=== PATIENT | male | born 1990 | race African-American/Black ===

== ENCOUNTER 2023-03-30 18:54 | Emergency (ER) | payer OTHER, SELFPAY ==
--- NOTE | ~2023-03-30 | XR_ITS ---
EXAMINATION: XR chest 2V DATE: 03/30/2023 19:31 INDICATION: Chest pain. TECHNIQUE: Frontal and lateral views of the chest were obtained. COMPARISON: None. FINDINGS: The chest demonstrates clear lungs without pneumonia, pleural effusion, or pneumothorax. Th e heart size is normal. There is old healed fracture of left sixth rib. IMPRESSION: 1. No acute cardiopulmonary disease. Reviewed, dictated and finalized at location A.
[2023-03-30 19:08] VITALS: BP 164/84; PULSE 91; RESP 16; TEMP 37.2; O2SAT 100
--- NOTE | 2023-03-30 19:21 | ECG_ITS ---
Measurements Intervals [place] Rate: 80 P: 39 NM: 159 QRS: 22 QRSD: 102 T: -23 QT: 363 QTc: 421 Interpretive Statements SINUS RHYTHM INCOMPLETE RIGHT BUNDLE BRANCH BLOCK NONSPECIFIC T-WAVE ABNORMALITY- ANTEROLAT/INF LEADS BORDERLINE ECG NO PREVIOUS ECG AVAILABLE FOR COMPARISON Electronically Signed On 03-31-2023 8:06:42 CDT by Gabo Brooks D.O.
--- NOTE | 2023-03-30 19:46 | ED.GENADULT ---
HPI - General Adult General Chief complaint: Chest Pain Stated complaint: bp high/chest hurting Source: patient Mode of arrival: ambulatory Limitations: no limitations History of Present Illness HPI narrative: Patient presents for evaluation of elevated blood pressure. He indicates he establish care with a new primary provider for his employer last Friday. At that time his blood pressure was elevated in the office. They recommended that he return a week from then to have his blood pressure repeated and to have comprehensive labs performed. He states he was told that they would consider starting him on BP medication at that time. He has a family history of hypertension on both his maternal and paternal side. States stress level at home is manageable. No underlying medical problems. He does not smoke or use illicit drugs. He drinks socially. He states he has experienced intermittent chest pain over the past few months. Pain occurs once per week, is right sided, sharp, rated 4/10 in severity and lasts about 20 mins in duration. He cannot identify any aggravating or alleviating factors. He does exercise regularly but has not experienced any recent injury. He does not use creating containing products. He experience some right-sided chest pain around 1330 today which lasted approximately 20 minutes. Pain resolved. His girlfriend advised he come in for further evaluation. He checked his blood pressure at home with reading of 180s over 90s. He has been chest pain free since approximately 1350. Current time is 1945. He did have some SOB earlier, which has since resolved. Related Data Home Medications Medication Instructions Recorded Confirmed No Home Medications 03/30/23 03/30/23 Allergies Allergy/AdvReac Type Severity Reaction Status Date / Time No Known Allergies Allergy Verified 03/30/23 19:07 Review of Systems Review of Systems: CONSTITUTIONAL: Denies fever, chills, or sweats. EYES: Denies visual changes, redness, or discharge. ENT: Denies rhinorrhea, congestion, sore throat, or otalgia. CARDIOVASCULAR: Reports chest pain earlier, now resolved. Denies, palpitations, or edema. RESPIRATORY: Reports shortness of breath earlier, now resolved. Denies cough GASTROINTESTINAL: Denies abdominal pain, nausea, vomiting, or diarrhea. GENITOURINARY: Denies dysuria or hematuria. SKIN: Denies rash or itching. MUSCULOSKELETAL: Denies back pain, joint pain, or myalgia. NEUROLOGIC: Denies headache, numbness, dizziness, or weakness. PSYCHIATRIC: Denies anxiety or depression. [facility] Past Medical History Medical History No pertinent past medical history Surgical History Surgical History No pertinent past surgical history Family History Family History Mother Hypertension Social History Social History Smoking status: Never smoker Alcohol intake: current Alcohol use details: Social Substance use: never Gender identity (if verbalized by the patient): Male Sexual Orientation (if Verbalized by the Patient): Straight or Heterosexual Spiritual care concerns: No Exam Narrative: GENERAL: Well-appearing, well-nourished, and in no acute distress. HEAD: Normocephalic, atraumatic. EYES: PERRLA and EOMI. ENT: Nares clear, no rhinorrhea or epistaxis. Mucous membranes moist. Oropharynx without tonsillar hypertrophy exudate or other lesions. Bilateral TMs pearly pro nonbulging NECK: Supple. No adenopathy or masses. No carotid bruits or JVD CHEST: Clear to auscultation. No respiratory distress. No wheezes rales or rhonchi HEART: Regular rate and rhythm. No murmur heard. Normal peripheral pulses. ABDOMEN: Soft, nontender, nondistended, normal active bowel sounds. EXTREM
== END 2023-03-30 19:50 | disposition home or self-care (01) ==
PROVIDERS: Emergency Provider Nurse Practitioner
DX: I10 Essential (primary) hypertension (principal); R07.9 Chest pain, unspecified; I45.10 Unspecified right bundle-branch block
CPT/HCPCS: 71046; 93005; 99213; G0463

== ENCOUNTER 2023-04-01 17:36 | Outpatient (CLI) | payer OTHER, SELFPAY ==
--- NOTE | ~2023-04-01 | MR_ITS ---
MRI of the right knee Clinical history: Pain Technique: Coronal proton density and proton density-weighted images, sagittal proton-density and T2 fat-sat images, and axial proton-density fat-saturated images were acquired. Findings: Anterior and posterior cruciate ligaments are intact. Medial collateral ligament and the la teral collateral ligament complex are intact. Popliteus tendon is intact. Medial and lateral menisci are intact, without evidence of tear. Articular cartilage is well preserved in the medial lateral compartment, and along the patella. There is a probable focal high-grade chondral fissure at the medial aspect of the femoral trochlea. Bone m arrow signals are unremarkable. Extensor mechanism is intact. No joint effusion. No Dolan's cyst. Impression: Focal high-grade chondral fissure the medial aspect of the femoral trochlea. No other significant findings. Reviewed, dictated and finalized at [facility]. Impression: Focal high-grade chondral fissure the medial aspect of the femoral trochlea. No other significant findings.
== END 2023-04-01 17:37 | disposition home or self-care (01) ==
PROVIDERS: Visit Provider Family Medicine
DX: M25.561 Pain in right knee (principal)
CPT/HCPCS: 73721